=== PATIENT | male | born 1950 | race Caucasian/White ===

== ENCOUNTER → 2018-09-22 | Outpatient (CLI) | payer OTHER ==
[~2018-09-22] MED LIST: AMBIEN 5 MG TABL5 M1 PO; ERTAPENEM1 GM IV
[2018-09-22 17:26] VITALS: BP 131/77
== END ==
LOC: OPONC 09:04
DX: C80.1 Malignant (primary) neoplasm, unspecified (principal); R60.9 Edema, unspecified
CPT/HCPCS: 95000

== ENCOUNTER → 2018-09-23 | Outpatient (CLI) | payer OTHER ==
[2018-09-23 10:15] VITALS: BP 113/70
== END ==
LOC: OPONC 06:27
DX: C80.1 Malignant (primary) neoplasm, unspecified (principal); K11.8 Other diseases of salivary glands; R60.9 Edema, unspecified
CPT/HCPCS: 95000

== ENCOUNTER → 2018-09-24 | Outpatient (CLI) | payer OTHER | LOC: OPONC 08:05 | DX: C80.1 Malignant (primary) neoplasm, unspecified (principal); K11.8 Other diseases of salivary glands; R60.9 Edema, unspecified | CPT/HCPCS: 95000 ==

== ENCOUNTER → 2018-09-25 | Outpatient (CLI) | payer OTHER | LOC: OPONC 08:08 | DX: C80.1 Malignant (primary) neoplasm, unspecified (principal); K11.8 Other diseases of salivary glands; R60.9 Edema, unspecified | CPT/HCPCS: 95000 ==

== ENCOUNTER → 2018-09-26 | Outpatient (CLI) | payer OTHER ==
[2018-09-26 13:41] VITALS: BP 121/78
== END ==
LOC: OPONC 07:58
DX: C80.1 Malignant (primary) neoplasm, unspecified (principal); K11.8 Other diseases of salivary glands; R60.9 Edema, unspecified
CPT/HCPCS: 95000

== ENCOUNTER → 2018-09-27 | Outpatient (CLI) | payer OTHER ==
[2018-09-27 10:07] VITALS: BP 134/84
== END ==
LOC: OPONC 07:04
DX: R60.9 Edema, unspecified (principal); C80.1 Malignant (primary) neoplasm, unspecified
CPT/HCPCS: 95000

== ENCOUNTER → 2018-09-28 | Outpatient (CLI) | payer OTHER ==
[2018-09-28 09:55] VITALS: BP 117/84
== END ==
LOC: OPONC 00:47
DX: R60.9 Edema, unspecified (principal); C80.1 Malignant (primary) neoplasm, unspecified
CPT/HCPCS: 95000

== ENCOUNTER → 2018-09-29 | Outpatient (CLI) | payer OTHER ==
[2018-09-29 13:43] VITALS: BP 132/77
== END ==
LOC: OPONC 00:32
DX: C80.1 Malignant (primary) neoplasm, unspecified (principal); K11.8 Other diseases of salivary glands; R60.9 Edema, unspecified
CPT/HCPCS: 95000

== ENCOUNTER → 2018-09-30 | Outpatient (CLI) | payer OTHER ==
[2018-09-30 11:10] VITALS: BP 116/72
[2018-09-30 11:22] LABS: ABSOLUTE NEUTROPHILS 5.3 thou/uL (1.4-8.2); BASOPHILS 0.4 % (0.0-2.0); EOSINOPHILS 1.3 % (0.0-3.0); HEMATOCRIT 34.1 % (42.0-52.0); HEMOGLOBIN 11.7 gm/dL (14.0-18.0); LYMPHOCYTES 8.6 % (24.0-44.0); MCH 29.1 pg (26.0-34.0); MCHC 34.3 g/dL (28.0-37.0); MCV 84.8 fL (80.0-100.0); MONOCYTES 11.6 % (1.0-8.0); PLATELET COUNT 549 thou/uL (150-400); POLYS 78.1 % (36.0-66.0); RBC 4.02 mil/uL (4.50-6.00); RDW 14.8 % (10.5-14.5); WBC 6.7 thou/uL (4.0-11.0)
[2018-09-30 11:36] LABS: CREATININE 0.6 mg/dL (0.7-1.3); POTASSIUM 4.4 mmol/L (3.5-5.1); TOTAL BILIRUBIN 0.4 mg/dL (<0.1-1.0); TOTAL PROTEIN 7.5 g/dL (6.4-8.2)
== END ==
LOC: OPONC 00:28
PROVIDERS: Specialist
DX: C80.1 Malignant (primary) neoplasm, unspecified (principal); K11.8 Other diseases of salivary glands; R60.9 Edema, unspecified
CPT/HCPCS: 95000

== ENCOUNTER → 2018-10-01 | Outpatient (CLI) | payer OTHER | LOC: OPONC 08:19 | DX: C80.1 Malignant (primary) neoplasm, unspecified (principal); K11.8 Other diseases of salivary glands; R60.9 Edema, unspecified | CPT/HCPCS: 95000 ==

== ENCOUNTER → 2018-10-02 | Outpatient (CLI) | payer OTHER | LOC: OPONC 08:18 | DX: C80.1 Malignant (primary) neoplasm, unspecified (principal); K11.8 Other diseases of salivary glands; R60.9 Edema, unspecified | CPT/HCPCS: 95000 ==

== ENCOUNTER → 2018-10-03 | Outpatient (CLI) | payer OTHER ==
[2018-10-03 16:20] LABS: CALCIUM 9.2 mg/dL (8.5-10.1); CREATININE 0.5 mg/dL (0.7-1.3); POTASSIUM 4.2 mmol/L (3.5-5.1)
[2018-10-03 16:34] VITALS: BP 129/76
== END ==
LOC: OPONC 00:34
DX: C80.1 Malignant (primary) neoplasm, unspecified (principal); K11.8 Other diseases of salivary glands; R60.9 Edema, unspecified
CPT/HCPCS: 95000

== ENCOUNTER → 2018-10-04 | Outpatient (CLI) | payer OTHER ==
[2018-10-04 09:10] VITALS: BP 123/77
== END ==
LOC: OPONC 06:21
DX: C80.1 Malignant (primary) neoplasm, unspecified (principal); K11.8 Other diseases of salivary glands; R60.9 Edema, unspecified
CPT/HCPCS: 95000

== ENCOUNTER → 2018-10-05 | Outpatient (CLI) | payer OTHER ==
[2018-10-05 09:18] VITALS: BP 122/76
== END ==
LOC: OPONC 00:36
DX: C80.1 Malignant (primary) neoplasm, unspecified (principal); K11.8 Other diseases of salivary glands; R60.9 Edema, unspecified
CPT/HCPCS: 95000

== ENCOUNTER → 2018-10-06 | Outpatient (CLI) | payer OTHER ==
[2018-10-06 09:05] VITALS: BP 119/82
== END ==
LOC: OPONC 02:56
DX: C80.1 Malignant (primary) neoplasm, unspecified (principal); K11.8 Other diseases of salivary glands; R60.9 Edema, unspecified
CPT/HCPCS: 95000

== ENCOUNTER → 2018-10-07 | Outpatient (CLI) | payer OTHER ==
[2018-10-07 09:55] LABS: HEMATOCRIT 34.6 % (42.0-52.0); HEMOGLOBIN 11.7 gm/dL (14.0-18.0); MCHC 33.8 g/dL (28.0-37.0); MCV 85.7 fL (80.0-100.0); RBC 4.04 mil/uL (4.50-6.00); RDW 15.1 % (10.5-14.5); WBC 5.3 thou/uL (4.0-11.0)
[2018-10-07 10:11] LABS: CALCIUM 9.1 mg/dL (8.5-10.1); CREATININE 0.5 mg/dL (0.7-1.3); POTASSIUM 4.1 mmol/L (3.5-5.1); TOTAL BILIRUBIN 0.5 mg/dL (<0.1-1.0); TOTAL PROTEIN 7.2 g/dL (6.4-8.2)
[2018-10-07 12:00] VITALS: BP 123/84
== END ==
LOC: OPONC 02:31
PROVIDERS: Specialist
DX: C80.1 Malignant (primary) neoplasm, unspecified (principal); K11.8 Other diseases of salivary glands; R60.9 Edema, unspecified
CPT/HCPCS: 95000

== ENCOUNTER → 2018-10-08 | Outpatient (CLI) | payer OTHER | LOC: OPONC 02:31 | DX: C80.1 Malignant (primary) neoplasm, unspecified (principal); K11.8 Other diseases of salivary glands; R60.9 Edema, unspecified | CPT/HCPCS: 95000 ==

== ENCOUNTER → 2018-10-09 | Outpatient (CLI) | payer OTHER | LOC: OPONC 02:31 | DX: C80.1 Malignant (primary) neoplasm, unspecified (principal); K11.8 Other diseases of salivary glands; R60.9 Edema, unspecified | CPT/HCPCS: 95000 ==

== ENCOUNTER → 2018-10-10 | Outpatient (CLI) | payer OTHER ==
[2018-10-10 09:00] VITALS: BP 127/75
== END ==
LOC: OPONC 00:55
DX: C80.1 Malignant (primary) neoplasm, unspecified (principal); K11.8 Other diseases of salivary glands; R60.9 Edema, unspecified
CPT/HCPCS: 95000

== ENCOUNTER → 2018-10-14 | Outpatient (CLI) | payer OTHER ==
[2018-10-14 09:20] VITALS: BP 121/68
[2018-10-14 09:30] LABS: HEMATOCRIT 35.4 % (42.0-52.0); HEMOGLOBIN 11.9 gm/dL (14.0-18.0); MCH 29.3 pg (26.0-34.0); MCHC 33.5 g/dL (28.0-37.0); MCV 87.3 fL (80.0-100.0); RBC 4.05 mil/uL (4.50-6.00); RDW 16.2 % (10.5-14.5); WBC 7.2 thou/uL (4.0-11.0)
[2018-10-14 09:42] LABS: ALBUMIN 3.1 g/dL (3.4-5.0); CALCIUM 9.4 mg/dL (8.5-10.1); CREATININE 0.7 mg/dL (0.7-1.3); POTASSIUM 4.4 mmol/L (3.5-5.1); TOTAL BILIRUBIN 0.5 mg/dL (<0.1-1.0); TOTAL PROTEIN 7.3 g/dL (6.4-8.2)
== END ==
LOC: OPONC 01:06
PROVIDERS: Specialist
DX: L08.9 Local infection of the skin and subcutaneous tissue, unspecified (principal); C76.0 Malignant neoplasm of head, face and neck; R91.8 Other nonspecific abnormal finding of lung field
CPT/HCPCS: 91016

== ENCOUNTER → 2018-10-31 | Outpatient (CLI) | payer OTHER ==
[2018-10-31 09:41] VITALS: BP 118/76
[2018-10-31 09:54] LABS: HEMATOCRIT 35.8 % (42.0-52.0); HEMOGLOBIN 12.2 gm/dL (14.0-18.0); MCH 29.5 pg (26.0-34.0); MCHC 34.1 g/dL (28.0-37.0); MCV 86.3 fL (80.0-100.0); RBC 4.15 mil/uL (4.50-6.00); RDW 16.5 % (10.5-14.5); WBC 6.6 thou/uL (4.0-11.0)
[2018-10-31 10:08] LABS: ALBUMIN 3.1 g/dL (3.4-5.0); CALCIUM 9.2 mg/dL (8.5-10.1); CREATININE 0.7 mg/dL (0.7-1.3); POTASSIUM 4.2 mmol/L (3.5-5.1); TOTAL BILIRUBIN 0.5 mg/dL (<0.1-1.0); TOTAL PROTEIN 7.5 g/dL (6.4-8.2)
--- NOTE | 2018-10-31 14:00 | NUR ---
IN FOR CLINIC VISIT WITH DR. HOWARD. STATED DOING WELL. MINIMAL PAIN TO RIGHT JAW. DIARRHEA HAS RESOLVED. DR. HOWARD VISITED. NEW ORDERS WRITTEN. PATIENT TO CONTINUE AUGMENTIN FOR ANOTHER WEEK AND RETURN FOR VISIT NEXT WEDNESDAY. SENT FOR MEDICAL RECORDS TO [facility] AND [facility]. DISMISSED IN STABLE CONDITION.
== END ==
LOC: OPONC 00:15
PROVIDERS: Specialist
DX: C80.1 Malignant (primary) neoplasm, unspecified (principal); K11.8 Other diseases of salivary glands
CPT/HCPCS: 91016

== ENCOUNTER → 2018-11-07 | Outpatient (CLI) | payer OTHER ==
[2018-11-07 09:31] VITALS: BP 131/67
[2018-11-07 09:33] LABS: CALCIUM 9.3 mg/dL (8.5-10.1); CREATININE 0.7 mg/dL (0.7-1.3); POTASSIUM 4.2 mmol/L (3.5-5.1)
--- NOTE | 2018-11-07 12:49 | NUR ---
IN FOR CLINIC VISIT WITH DR. HOWARD. SLIGHT INCREASE IN RIGHT FACIAL EDEMA. PAIN REPORTED TO RIGHT SIDE OF FACE. NEW PRESCRIPTION GIVEN TO PATIENT FOR PERCOCET AND AUGMENTIN. DR. HOWARD REVIEWED MOST RECENT PET SCAN, BIOPSY RESULTS, AND CT SCAN. DR. HOWARD INFORMED PATIENT OF ALL RESULTS. 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 PATIENT LEAVING FOR A 2 WEEK VACATION TOMORROW AND WILL FOLLOW UP WITH DR. MARQUEZ WHEN HE GETS BACK. DR. HOWARD SIGNED OFF FOR NOW. NO F/U APPT NEEDED. DISMISSED IN STABLE CONDITION.
== END ==
LOC: OPONC 00:52
PROVIDERS: Specialist
DX: C80.1 Malignant (primary) neoplasm, unspecified (principal); K11.8 Other diseases of salivary glands
CPT/HCPCS: 91016